=== PATIENT | male | born 1985 | race Caucasian/White ===

== ENCOUNTER 2019-05-22 18:49 | Inpatient (IN) ==
[2019-05-22 19:38] LABS: Bilirubin,Urine Negative (Negative); Blood,Urine Negative (Negative); Clarity,Urine Clear (Clear); Color,Urine Yellow (Yellow); Glucose,Urine (UA) Normal (Normal); Ketones,Urine Negative (Negative); Leukocyte Esterase,Urine Negative (Negative); Nitrite,Urine Negative (Negative); Protein,Urine Negative (Neg-Trace); Specific Gravity,Urine 1.026 (1.010-1.025); Urobilinogen,Urine Normal (Normal)
[2019-05-22 19:42] LABS: Basophils # 0.1 K/mcL (0.0-0.2); Basophils % 0.6 %; Eosinophils # 0.2 K/mcL (0.0-0.6); Eosinophils % 2.6 %; Hematocrit 37.1 % (37.5-50.1); Hemoglobin 12.5 g/dL (12.9-16.9); Immature Granulocytes % 0.2 % (0-4); Lymphocytes # 2.4 K/mcL (0.6-4.6); Lymphocytes % 29.1 %; Mean Corpuscular HGB Conc 33.7 g/dL (31.6-35.5); Mean Corpuscular Hemoglobin 30.8 pg (28.0-33.3); Mean Corpuscular Volume 91.4 fL (83.0-100.0); Mean Platelet Volume 8.5 fL (9.4-12.4); Monocytes # 0.6 K/mcL (0.0-1.3); Monocytes % 7.2 %; Platelet Count 376 K/mcL (140-400); Red Blood Count 4.06 M/mcL (4.19-5.50); Red Cell Distribution Width 12.9 % (11.5-14.5); Segmented Neutrophils % 60.3 %; White Blood Count 8.4 K/mcL (4.3-11.1)
[2019-05-22 20:01] LABS: Amphetamine Screen,Urine Negative ng/mL (Cutoff=1000); Barbiturate Screen,Urine Negative ng/mL (Cutoff=200); Benzodiazepines Screen,Urine Negative ng/mL (Cutoff=200); Cannabinoid Screen,Urine Negative ng/mL (Cutoff = 50); Cocaine Screen,Urine Negative ng/mL (Cutoff= 300); Opiate Screen,Urine Positive ng/mL (Cutoff=300); Phencyclidine Screen,Urine Negative ng/mL (Cutoff=25)
[2019-05-22 20:03] LABS: Acetaminophen < 10 mcg/mL (10-20); Alanine Aminotransferase 21 Units/L (7-52); Albumin 4.7 g/dL (3.5-5.7); Albumin/Globulin Ratio 1.6 (1.1-2.2); Alkaline Phosphatase 94 Units/L (34-104); Aspartate Amino Transferase 18 Units/L (13-39); BUN/Creatinine Ratio 20 (6-26); Bilirubin,Direct 0.1 mg/dL (0.0-0.2); Bilirubin,Indirect 0.3 mg/dL (0.0-1.0); Bilirubin,Total 0.4 mg/dL (0.3-1.0); Blood Urea Nitrogen 16 mg/dL (6-20); Carbon Dioxide 25 mEq/L (23-29); Chloride 103 mEq/L (98-107); Ethanol < 10 mg/dL (Less than 10); Globulin 2.9 g/dL (2.4-3.5); Glucose 86 mg/dL (70-105); Osmolality,Calculated 288 (280-300); Potassium 3.7 mEq/L (3.5-5.1); Salicylate < 2.5 mg/dL (15.0-30.0); Sodium 139 mEq/L (136-145); Total Protein 7.6 g/dL (6.4-8.9); eGFR For African Americans > 60 (> 60); eGFR For Non-African Americans > 60 (> 60)
[2019-05-22 20:15] LABS: Thyroid Stimulating Hormone 0.926 mcIU/mL (0.340-5.600)
[2019-05-22] MEDS ORDERED: Ibuprofen 600 MG TABLET PO ONE (21:00)
[2019-05-22] MEDS ORDERED: *HR* LORazepam 1 MG TABLET PO PRN (21:55)
[2019-05-22] MEDS ORDERED: Haloperidol Lactate 5 MG/ML VIAL IM PRN (21:55)
[2019-05-22] MEDS ORDERED: *HR* LORazepam 2 MG/ML VIAL IM PRN (21:55)
[2019-05-22] MEDS ORDERED: Mag Hydrox/Al Hydrox/Simeth 30 ML UDC PO PRN (21:55)
[2019-05-22] MEDS ORDERED: Acetaminophen 325 MG TABLET PO PRN (21:55)
[2019-05-22] MEDS: *HR* OxyCODONE/APAP 10/325 TABLET PO PRN (22:53)
[2019-05-22] MEDS: traZODone 50 MG TABLET PO PRN (22:54)
[2019-05-23] MEDS: *HR* OxyCODONE/APAP 10/325 TABLET PO PRN ×3 (09:13→21:30)
[2019-05-23] MEDS: Nicotine 2 MG GUM BC PRN ×5 (09:41→20:20)
[2019-05-23] MEDS: BuPROPion XL (24 HR) 150 MG TABLET PO SCH (10:13)
[2019-05-23] MEDS: traZODone 50 MG TABLET PO PRN (21:30)
[2019-05-24] MEDS: *HR* OxyCODONE/APAP 10/325 TABLET PO PRN ×3 (06:44→19:07)
[2019-05-24] MEDS: BuPROPion XL (24 HR) 150 MG TABLET PO SCH (08:28)
[2019-05-24] MEDS: Nicotine 2 MG GUM BC PRN ×5 (09:34→21:13)
[2019-05-25] MEDS: traZODone 50 MG TABLET PO PRN (00:40)
[2019-05-25] MEDS: hydrOXYzine pamoate 25 MG CAPSULE PO PRN ×3 (01:06→20:17)
[2019-05-25] MEDS: *HR* OxyCODONE/APAP 10/325 TABLET PO PRN ×5 (01:06→20:17)
[2019-05-25] MEDS: BuPROPion XL (24 HR) 150 MG TABLET PO SCH (08:48)
[2019-05-25] MEDS: Nicotine 2 MG GUM BC PRN ×3 (08:51→16:57)
[2019-05-25] MEDS: traZODone 50 MG TABLET PO SCH (20:17)
[2019-05-26] MEDS: BuPROPion XL (24 HR) 150 MG TABLET PO SCH (08:10)
[2019-05-26] MEDS: *HR* OxyCODONE/APAP 10/325 TABLET PO PRN ×3 (08:10→20:18)
[2019-05-26] MEDS: Nicotine 2 MG GUM BC PRN ×4 (08:40→20:19)
[2019-05-26] MEDS ORDERED: BuPROPion XL (24 HR) 150 MG TABLET PO ONE (10:18)
[2019-05-26] MEDS: traZODone 50 MG TABLET PO SCH (20:18)
[2019-05-26] MEDS: hydrOXYzine pamoate 25 MG CAPSULE PO PRN (20:18)
[2019-05-27] MEDS: *HR* OxyCODONE/APAP 10/325 TABLET PO PRN ×6 (01:05→21:13)
[2019-05-27] MEDS: Nicotine 2 MG GUM BC PRN ×4 (08:23→21:13)
[2019-05-27] MEDS: BuPROPion XL (24 HR) 150 MG TABLET PO SCH (08:23)
[2019-05-27] MEDS: hydrOXYzine pamoate 25 MG CAPSULE PO PRN (21:53)
[2019-05-27] MEDS: traZODone 50 MG TABLET PO SCH (21:54)
[2019-05-28] MEDS: *HR* OxyCODONE/APAP 10/325 TABLET PO PRN ×6 (01:13→23:10)
[2019-05-28] MEDS: Nicotine 2 MG GUM BC PRN ×4 (05:44→20:35)
[2019-05-28] MEDS: BuPROPion XL (24 HR) 150 MG TABLET PO SCH (08:29)
[2019-05-28] MEDS: traZODone 50 MG TABLET PO SCH (21:45)
[2019-05-29] MEDS: *HR* OxyCODONE/APAP 10/325 TABLET PO PRN ×5 (03:37→20:50)
[2019-05-29] MEDS: BuPROPion XL (24 HR) 150 MG TABLET PO SCH (08:33)
[2019-05-29] MEDS: Nicotine 2 MG GUM BC PRN ×3 (08:34→19:13)
[2019-05-29] MEDS: QUEtiapine Fumarate 25 MG TABLET PO PRN (20:50)
[2019-05-30] MEDS: traZODone 50 MG TABLET PO SCH ×2 (00:56→23:13)
[2019-05-30] MEDS: *HR* OxyCODONE/APAP 10/325 TABLET PO PRN ×6 (00:56→23:51)
[2019-05-30] MEDS: BuPROPion XL (24 HR) 150 MG TABLET PO SCH (08:51)
[2019-05-30] MEDS: Nicotine 2 MG GUM BC PRN (12:36)
[2019-05-30] MEDS: QUEtiapine Fumarate 25 MG TABLET PO PRN (23:52)
[2019-05-31] MEDS: *HR* OxyCODONE/APAP 10/325 TABLET PO PRN ×5 (03:56→20:57)
[2019-05-31] MEDS: hydrOXYzine pamoate 25 MG CAPSULE PO PRN (03:56)
[2019-05-31] MEDS: BuPROPion XL (24 HR) 150 MG TABLET PO SCH (08:18)
[2019-05-31] MEDS: Nicotine 2 MG GUM BC PRN (16:44)
[2019-05-31] MEDS: traZODone 50 MG TABLET PO SCH (20:27)
[2019-05-31] MEDS: QUEtiapine Fumarate 25 MG TABLET PO PRN (20:57)
[2019-06-01] MEDS: *HR* OxyCODONE/APAP 10/325 TABLET PO PRN ×6 (02:07→22:49)
[2019-06-01] MEDS: BuPROPion XL (24 HR) 150 MG TABLET PO SCH (08:37)
[2019-06-01] MEDS: hydrOXYzine pamoate 25 MG CAPSULE PO PRN (14:21)
[2019-06-01] MEDS: traZODone 50 MG TABLET PO SCH (22:22)
[2019-06-01] MEDS: QUEtiapine Fumarate 25 MG TABLET PO PRN (22:49)
[2019-06-02] MEDS: *HR* OxyCODONE/APAP 10/325 TABLET PO PRN ×5 (04:11→21:20)
[2019-06-02] MEDS: BuPROPion XL (24 HR) 150 MG TABLET PO SCH (08:40)
[2019-06-02] MEDS: QUEtiapine Fumarate 25 MG TABLET PO PRN (21:20)
[2019-06-02] MEDS: traZODone 50 MG TABLET PO SCH (21:35)
[2019-06-03] MEDS: *HR* OxyCODONE/APAP 10/325 TABLET PO PRN ×4 (07:59→20:29)
[2019-06-03] MEDS: BuPROPion XL (24 HR) 150 MG TABLET PO SCH (08:00)
[2019-06-03] MEDS: hydrOXYzine pamoate 25 MG CAPSULE PO PRN ×2 (17:41→20:30)
[2019-06-04] MEDS: traZODone 50 MG TABLET PO SCH (01:55)
[2019-06-04] MEDS: *HR* OxyCODONE/APAP 10/325 TABLET PO PRN ×2 (01:57→08:43)
[2019-06-04] MEDS: BuPROPion XL (24 HR) 150 MG TABLET PO SCH (08:42)
[2019-06-04 08:54] VITALS: BP 127/80
== END 2019-06-04 09:47 | disposition home or self-care (01) | DRG 885 ==
LOC: EMEROOARM 18:49 → 1ANU 20:45 → SUATTDRO 21:53 → 1ANU 21:53
PROVIDERS: ADMIT Psychiatry & Neurology Psychiatry; ATTEND Psychiatry & Neurology Psychiatry

== ENCOUNTER 2020-01-12 23:17 | Observation (INO) ==
[2020-01-13 02:30] LABS: Basophils % 0.6 %; Eosinophils # 0.1 K/mcL (0.0-0.6); Hematocrit 34.4 % (37.5-50.1); Hemoglobin 11.5 g/dL (12.9-16.9); Immature Granulocytes % 0.4 % (0-4); Lymphocytes # 1.3 K/mcL (0.6-4.6); Lymphocytes % 17.6 %; Mean Corpuscular HGB Conc 33.4 g/dL (31.6-35.5); Mean Corpuscular Hemoglobin 30.3 pg (28.0-33.3); Mean Corpuscular Volume 90.5 fL (83.0-100.0); Mean Platelet Volume 8.8 fL (9.4-12.4); Monocytes # 0.5 K/mcL (0.0-1.3); Monocytes % 7.2 %; Neutrophils # 5.3 K/mcL (1.6-8.9); Platelet Count 325 K/mcL (140-400); Segmented Neutrophils % 73.2 %; White Blood Count 7.3 K/mcL (4.3-11.1)
[2020-01-13 02:48] LABS: BUN/Creatinine Ratio 23 (6-26); Blood Urea Nitrogen 19 mg/dL (6-20); Carbon Dioxide 26 mEq/L (23-29); Chloride 104 mEq/L (98-107); Potassium 3.9 mEq/L (3.5-5.1); Sodium 138 mEq/L (136-145); eGFR For African Americans > 60 (> 60)
[2020-01-13 02:49] LABS: Alanine Aminotransferase 9 Units/L (7-52); Albumin 4.3 g/dL (3.5-5.7); Albumin/Globulin Ratio 1.6 (1.1-2.2); Alkaline Phosphatase 58 Units/L (34-104); Aspartate Amino Transferase 10 Units/L (13-39); Bilirubin,Total 0.3 mg/dL (0.3-1.0); Calcium 9.8 mg/dL (8.6-10.3); Globulin 2.7 g/dL (2.4-3.5); Glucose 120 mg/dL (70-105); Osmolality,Calculated 289 (280-300); Troponin I < 0.03 ng/mL (< 0.04); eGFR For Non-African Americans > 60 (> 60)
[2020-01-13] MEDS ORDERED: Naloxone 0.4 MG/ML INJ IVP PRN (05:02)
[2020-01-13] MEDS: *HR* OxyCODONE/APAP 10/325 TABLET PO PRN ×3 (10:17→23:53)
[2020-01-14 02:16] LABS: Basophils % 0.7 %; Eosinophils # 0.1 K/mcL (0.0-0.6); Eosinophils % 2.3 %; Hematocrit 35.1 % (37.5-50.1); Hemoglobin 11.8 g/dL (12.9-16.9); Immature Granulocytes % 0.2 % (0-4); Lymphocytes # 1.9 K/mcL (0.6-4.6); Lymphocytes % 33.9 %; Mean Corpuscular HGB Conc 33.6 g/dL (31.6-35.5); Mean Corpuscular Hemoglobin 30.9 pg (28.0-33.3); Mean Corpuscular Volume 91.9 fL (83.0-100.0); Mean Platelet Volume 8.9 fL (9.4-12.4); Monocytes # 0.6 K/mcL (0.0-1.3); Monocytes % 10.7 %; Platelet Count 311 K/mcL (140-400); Red Blood Count 3.82 M/mcL (4.19-5.50); Red Cell Distribution Width 13.1 % (11.5-14.5); Segmented Neutrophils % 52.2 %; White Blood Count 5.7 K/mcL (4.3-11.1)
[2020-01-14 02:32] LABS: BUN/Creatinine Ratio 22 (6-26); Blood Urea Nitrogen 18 mg/dL (6-20); Calcium 9.4 mg/dL (8.6-10.3); Carbon Dioxide 26 mEq/L (23-29); Chloride 104 mEq/L (98-107); Glucose 108 mg/dL (70-105); Osmolality,Calculated 292 (280-300); Potassium 3.6 mEq/L (3.5-5.1); Sodium 140 mEq/L (136-145); eGFR For African Americans > 60 (> 60); eGFR For Non-African Americans > 60 (> 60)
[2020-01-14] MEDS: *HR* OxyCODONE/APAP 10/325 TABLET PO PRN ×2 (06:45→12:36)
[2020-01-14 06:56] VITALS: BP 115/70
== END 2020-01-14 13:05 ==
LOC: CDU 23:17 → EMEROOARM 23:17 → CDU 01-13 05:39 → 3BNU 01-13 17:51
PROVIDERS: ADMIT Family Medicine; ATTEND Family Medicine